=== PATIENT | female | born 1995 | race Caucasian/White ===

== ENCOUNTER 2018-01-25 17:38 | Emergency (ER) | payer SELFPAY ==
[~2018-01-25] VITALS: Ht 175.3 cm; Wt 129.3 kg
[2018-01-25 17:42] VITALS: BP 159/85
[2018-01-25] MEDS ORDERED: HYDROcodone/APAP 5/325 TABLET ONE (18:17)
[2018-01-25] MEDS ORDERED: HYDROcodone/APAP 5/325 TABLET PO ONE (18:30)
== END 2018-01-25 19:32 | disposition home or self-care (01) ==
LOC: ED 19:26
DX: S62.633A Displaced fracture of distal phalanx of left middle finger, initial encounter for closed fracture (principal); E66.9 Obesity, unspecified; W23.0XXA Caught, crushed, jammed, or pinched between moving objects, initial encounter; Y93.89 Activity, other specified; Y92.488 Other paved roadways as the place of occurrence of the external cause; Y99.8 Other external cause status; G89.11 Acute pain due to trauma; Z90.49 Acquired absence of other specified parts of digestive tract
CPT/HCPCS: 29130; 99284